=== PATIENT | female | born 1980 | race Hispanic/Latino ===

== ENCOUNTER 2018-03-14 18:08 | Emergency (ER) | payer OTHER ==
[2018-03-14 18:13] VITALS: O2SAT 97
[2018-03-14] MEDS ORDERED: Lidocaine 2% w Epi 1:100,000 Inj IJ STA (19:02)
--- NOTE | 2018-03-14 19:51 | ED PDOC ---
HPI: Head Injury Time Seen by Provider: 03/14/18 18:34 Chief Complaint (Nursing): Trauma Chief Complaint (Provider): Facial injury, fall History Per: Patient History/Exam Limitations: no limitations Patient States: Fell Striking Head Severity: Mild Loss Of Consciousness: No Additional Complaint(s): 37 yo female with no medical problems presents for evaluation of head injury. Pt states she hit her head on metal sign. No LOC. Pt reports tetanus UTD. No headache. No N/V. Pt reports being hungry. Past Medical History Reviewed: Historical Data, Nursing Documentation, Vital Signs Vital Signs: Last Vital Signs Temp 98.1 F 03/14/18 18:10 Pulse 101 H 03/14/18 18:10 Resp 16 03/14/18 18:10 BP 133/80 03/14/18 18:10 Pulse Ox 97 03/14/18 18:10 - Medical History PMH: No Chronic Diseases - Surgical History Surgical History: No Surg Hx - Family History Family History: States: No Known Family Hx - Living Arrangements Living Arrangements: With Family - Social History Current smoker - smoking cessation education provided: No - Allergies Allergies/Adverse Reactions: Allergies Allergy/AdvReac Type Severity Reaction Status Date / Time No Known Allergies Allergy Verified 03/14/18 18:10 Review of Systems ROS Statement: Except As Marked, All Systems Reviewed And Found Negative Constitutional: Negative for: Fever, Sweats Gastrointestinal: Negative for: Nausea, Vomiting Skin: Positive for: Other Neurological: Negative for: Weakness, Numbness, Headache, Dizziness Physical Exam - Reviewed Nursing Documentation Reviewed: Yes Vital Signs Reviewed: Yes - Physical Exam Appears: Positive for: Well, Non-toxic, No Acute Distress Head Exam: Positive for: ATRAUMATIC, NORMAL INSPECTION, NORMOCEPHALIC Skin: Positive for: Warm. Negative for: Normal Color (3 cm laceration, right temporal area ) Eye Exam: Positive for: Normal appearance ENT: Positive for: Normal ENT Inspection Neck: Positive for: Normal, Painless ROM Cardiovascular/Chest: Positive for: Regular Rate, Rhythm Respiratory: Positive for: Normal Breath Sounds. 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 Negative for: Motor/Sensory Deficits, Aphasia, Facial Droop - ECG O2 Sat by Pulse Oximetry: 97 Pulse Ox Interpretation: Normal Medical Decision Making Medical Decision Making: Discussed return for N/V, headache, etc. Disposition - Clinical Impression Clinical Impression: Head injury - Patient ED Disposition Is Patient to be Admitted: No Counseled Patient/Family Regarding: Diagnosis, Need For Followup - Disposition Disposition: Routine/Home Disposition Time: 19:55 Condition: GOOD Additional Instructions: Do not get wet for 24-48 hours. Keep clean and dry. Suture removal in 1 week. Antibiotic ointment twice a day. Instructions: Head Injury Observation (DC) Forms: Wear My Tags (Setswana) Laceration - Laceration Repair right, temporal area Wound Length (In cm): 3cm Description Of Wound: Linear Wound Cleansed With: Sterile Saline Wound Examination: Irrigated With Saline Wound Closure: Suture (#5) Suture Technique And Material Used: Prolene (6.0) Wound Complexity: Simple
[2018-03-14 20:35] VITALS: BP 125/66; PULSE 73; RESP 18; TEMP 98.5
== END 2018-03-14 20:15 | disposition home or self-care (01) ==
LOC: H.ER 18:08
DX: S01.01XA Laceration without foreign body of scalp, initial encounter (principal); W22.8XXA Striking against or struck by other objects, initial encounter; Y92.89 Other specified places as the place of occurrence of the external cause